=== PATIENT | female | born 1995 | race Hispanic/Latino ===

== ENCOUNTER 2022-04-07 03:11 | Emergency (ER) | payer OTHER ==
[2022-04-07 03:43] VITALS: BP 112/68
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
== END 2022-04-07 07:18 ==
LOC: ED 03:11
DX: S01.81XA Laceration without foreign body of other part of head, initial encounter (principal); V89.2XXA Person injured in unspecified motor-vehicle accident, traffic, initial encounter; Y93.89 Activity, other specified; Y92.89 Other specified places as the place of occurrence of the external cause; Y99.8 Other external cause status
CPT/HCPCS: 99282